=== PATIENT | female | born 1945 | race Caucasian/White ===

== ENCOUNTER 2019-02-24 09:54 | Emergency (ER) | payer MEDICARE ==
--- NOTE | 2019-02-24 10:21 | ED Physician Chart ---
ED Chief Complaint/HPI - Patient Information Date Seen:: 02/24/19 Time Seen:: 10:16 Chief Complaint:: Right eye bleed History of Present Illness:: 73 yo female felt sudden onset of right pressure and noticed bleed in the right eye. Pt stated minor pain but mostly pressure and sense of foreign body in the right eye. Pt reported wake up at 3am and stay awake until 5am, possibly due to jet lag as [place] in [place] , and fly to [place] at weekends. Pt had similar episode 7 years ago. Vitals:: Vital Signs (72 hours) 02/24/19 02/24/19 02/24/19 10:00 10:59 11:09 Temp 97.4 F 97.4 F HR 58 62 62 RR 18 16 BP 173/89 163/56 163/56 O2 Sat % 97 ED Review of Systems - Review of Systems General/Constitutional: No fever, No chills Skin: No rash Head: No headache Eyes: No loss of vision ENT: No nasal drainage Neck: No neck pain, No thyromegaly Cardio Vascular: No chest pain Pulmonary: No SOB GI: No nausea, No vomiting Musculoskeletal: No bone or joint pain Psychiatric: No prior psych history Neurological: No focal symptoms ED Past Medical History - Past Medical History Past Medical History: Thyroid disorder (Hypothyroidism), Other (Right retinal hole treated with laser) Social History: Non Smoker, Alcohol, No Drug Use Family Medical History - Family Member Mother History Unknown: Yes ED Physical Exam - Physical Examination General/Constitutional: Awake, Alert Head: Atraumatic Eyes: PERRL, EOMI Other Eyes comments:: Right eye subconjunctival hemorrhage. Skin: No ecchymosis ENMT: Nasal exam nl Neck: No nuchal rigidity Respiratory: Clear to Auscultation Cardio Vascular: RRR, No murmur, gallop, rubs, NL S1 S2 GI: No tenderness/rebounding/guarding Extremities: normal strength in all extremities Neuro/Psych: No focal deficits ED Assessment - Assessment General Assessment: Subconjunctival hemorrhage, right eye Hypertension Assessment/Comments:: Hydralazine 25mg PO x 1 Advised patient that the subconjunctival hemorrhage may resolve in 2 weeks Apply artificial tears D/c home Amlodipine 2.5mg qd #30 F/u PMD ED Septic Shock - . Is Septic Shock (SBP<90, OR Lactate>4 mmol\L) present?: No ED Reassessment (Disposition) - Reassessment Reassessment Condition:: Improved - Aftercare/Follow up Instructions Medication Prescribed:: Amlodipine 2.5mg PO qd, #30 - Patient Disposition Discharge/Transfer:: Home
== END 2019-02-24 11:05 | disposition home or self-care (01) ==
LOC: ER 09:54
DX: H11.31 Conjunctival hemorrhage, right eye (principal); I10 Essential (primary) hypertension; E07.9 Disorder of thyroid, unspecified; Z88.0 Allergy status to penicillin
CPT/HCPCS: Z7502